=== PATIENT | male | born 1995 | race Caucasian/White ===

== ENCOUNTER 2023-01-25 12:25 | Emergency (ER) | payer OTHER, SELFPAY ==
--- NOTE | ~2023-01-25 | XR_ITS ---
Left elbow Technique: AP, oblique, and lateral views were obtained. Clinical History: Pain Findings: No acute fracture or dislocation is seen. Osseous alignment is anatomic. Joint spaces are p reserved. There is no displacement of the fat pads, and soft tissues are unremarkable. Impression: Unremarkable radiographs. Reviewed, dictated and finalized at location . Impression: Unremarkable radiographs.
[2023-01-25 12:25] VITALS: BP 141/93; PULSE 97; RESP 20; TEMP 36.9; O2SAT 97
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
== END 2023-01-25 13:10 | disposition home or self-care (01) ==
PROVIDERS: Emergency Provider Emergency Medicine
DX: M70.22 Olecranon bursitis, left elbow (principal); W22.09XA Striking against other stationary object, initial encounter
CPT/HCPCS: 73080; 99283

== ENCOUNTER 2024-06-29 14:35 | Emergency (ER) | payer OTHER, SELFPAY ==
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
[2024-06-29 14:35] VITALS: BP 144/89; PULSE 85; RESP 16; TEMP 36.8; O2SAT 97
--- OUTSIDE RECORDS SUMMARY | 2024-06-29 14:39 | XMS_ITS | Clinical Summary ---
Author Organization [facility] Address [facility] [place] [address] Care Team Providers Care Greenhouse Instructor Name Role Phone None, Provider MD Primary Care Provider Unavaila ble Allergies No known active allergies Medications No known medications Social History Tobacco Use Types Packs/Day Years Used Date Smoking Tobacco: Every Day Cigarettes 0.5 4.1 Started: 2020 Smokeless Tobacco: Never Tobacco Cessation:Ready to Q uit: Not Asked; Counseling Given: Not Answered Alcohol Use Standard Drinks/Week Comments Not Currently 0 (1 standard drink = 0.6 oz pur e alcohol) Sex and Gender Information Value Date Recorded Sex Assigned at Not on file 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 Gender Identity Not on file Sexual Orientation Not on file Last Filed Vital Signs Vital Sign Reading Time Taken Comments Blood Pressure 121/84 12/23/2023 10:00 PM CDT Pulse 70 12/23/2023 9:02 PM CDT Temperature 36.6 C (97.8 F) 12/23/2023 8:58 PM CDT Respiratory Rate 16 12/23/2023 8:58 PM CDT Oxygen Saturation 98% 12/23/2023 10:00 PM CDT Inhaled Oxygen Concentration - - Weight 70.3 kg (155 lb) 12/23/2023 9:01 PM CDT Height 170.2 cm (5' 7 ) 12/23/2023 9:01 PM CDT Body Mass Index 24.28 12/23/2023 9:01 PM CDT Plan of Treatment Health Maintenance Due Date Last Done Comments Annual Physical 11/06/1998 Pneumococcal Vaccine: Pediatrics (0 to 5 Years) and At-Risk Patients (6 to 64 Years) (1 of 2 - PCV) 11/06/2001 Hepatitis C 11/06/2013 DTaP, Tdap and Td Vaccines (4 - Td or Tdap) 03/05/2023 03/05/2013, 12/09/2000, 10/11/1997, Additional history exists COVID-19 Vaccine ( season) 2024 Influenza Adult (#1) 2024 Hepatitis B Vaccines Completed 12/07/1996, 06/15/1996, 03/09/1996 HPV Vaccines Aged Out No longer eligi ble based on patient's age to complete this topic Meningococcal B Vaccine Aged Out No l onger eligible based on patient's age to complete this topic Meningococcal Vaccine Aged Out No ana laura roosevelt eligible based on patient's age to complete this topic RSV Immunizations Under 20 Months Aged Out No longer eligible based on patient's age to complete this topic Insurance Care Teams Greenhouse Instructor Relationship Specialty Start Date End Date None, Provider, MD PCP - General UNKNOWN PHYSICIAN SPECIALTY 01/14/23
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
[2024-06-29 15:32] VITALS: BP 122/75; PULSE 74; RESP 17; TEMP 36.9; O2SAT 99
--- OUTSIDE RECORDS SUMMARY | 2024-06-29 15:37 | XMS_ITS | Clinical Summary ---
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
== END 2024-06-29 15:32 | disposition home or self-care (01) ==
LOC: CHSED 15:35
PROVIDERS: Emergency Provider Emergency Medicine
DX: S16.1XXA Strain of muscle, fascia and tendon at neck level, initial encounter (principal); S09.90XA Unspecified injury of head, initial encounter; V43.52XA Car driver injured in collision with other type car in traffic accident, initial encounter
CPT/HCPCS: 70450; 72125; 99284